=== PATIENT | male | born 1990 | race Hispanic/Latino ===

== ENCOUNTER 2020-09-11 21:25 | Emergency (ER) | payer BC ==
[~2020-09-11] VITALS: Ht 170.2 cm; Wt 83.9 kg
[2020-09-11] MEDS ORDERED: CLINDAMYCIN HC150 MG PO (22:10)
[2020-09-11] MEDS ORDERED: ACETAMINOPHEN 325 MG TAB ONE (22:12)
[2020-09-11] MEDS ORDERED: DEXAMETHASONE SOD PHOS 10 MG/1 ML VIAL IV ONE (22:15)
[2020-09-11] MEDS ORDERED: DIPHENHYDRAMINE HCL 25 MG CAP PO ONE (22:15)
[2020-09-11] MEDS ORDERED: CLINDAMYCIN HCL 150 MG CAP PO ONE (22:15)
[2020-09-11] MEDS ORDERED: FAMOTIDINE 20 MG TAB PO ONE (22:15)
[2020-09-11] MEDS ORDERED: DIPHENHYDRAMINE HCL 25 MG CAP ONE (22:21)
[2020-09-11] MEDS ORDERED: DEXAMETHASONE SOD PHOS 10 MG/1 ML VIAL ONE (22:21)
[2020-09-11] MEDS ORDERED: FAMOTIDINE 20 MG TAB ONE (22:21)
[2020-09-11 23:56] VITALS: BP 118/69
== END 2020-09-11 23:00 | disposition home or self-care (01) ==
LOC: ER 22:08
DX: R21 Rash and other nonspecific skin eruption (principal); T78.40XA Allergy, unspecified, initial encounter
CPT/HCPCS: 99283; J1100